=== PATIENT | male | born 1985 | race Caucasian/White ===

== ENCOUNTER → 2017-02-11 | Outpatient (CLI) | payer MEDICAID ==
--- NOTE | ~2017-02-11 | US128 ---
[id number] [facility] [address] [place], [place] [address] [id number] O MR#: [id number] Acc #: [id number] NAME: GRACIE CAREY : 1985 SEX: M STUDY DATE/TIME: 02/11/2017 15:36 UNIT: [facility] ROOM: STUDY DESCRIPTION: Thyroid Attending Physician: Cristo Morales M.D. Referring Physician: Critso Morales M.D. Ordering Physician: Cristo Morales M.D. Primary Care Physician: Cristo Morales M.D. MEDICAL IMAGING REPORT This report is preliminary unless electronic signature is present EXAM Thyroid ultrasound INDICATIONS Large thyroid gland palpated on physical exam in patient's doctor's office 2 weeks ago. TECHNIQUE Saldaña-scale and color Doppler sonographic images were obtained through the thyroid gland. FINDINGS Thyroid gland is large, right lobe measures 2.4 x 5.0 x 1.3 cm, left lobe measures 1.6 x 5.0 x 1.3 cm, isthmus measures about 3 mm in thickness. Thyroid parenchyma is mildly heterogeneous, although I do not see any discrete nodules. Vascularity appears normal. IMPRESSION Thyromegaly without discrete nodules identified. Dictated by... Ольга Kuo M.D. THIS IS AN ELECTRONICALLY VERIFIED REPORT Ольга Kuo M.D. at 02/12/2017 5:00 PM AFF/psc TD: 02/11/2017 23:13 JOB #: [id number] MEDICAL IMAGING REPORT Page 1 of 1 COPY
== END | disposition home or self-care (01) ==
LOC: CGUS 13:30
DX: E01.0 Iodine-deficiency related diffuse (endemic) goiter (principal)
CPT/HCPCS: 76536